=== PATIENT | male | born 1960 | race Hispanic/Latino ===

== ENCOUNTER 2018-05-14 06:20 | Observation (INO) | payer MEDICARE ==
[2018-05-11 13:09] LABS: BASOPHILS % (AUTO) 1.4 % (0.0-5.0); EOSINOPHILS % (AUTO) 7.8 % (0.0-8.0); HEMATOCRIT 32.1 % (42-54); LYMPHOCYTES % (AUTO) 27.2 % (21.0-51.0); MEAN CORPUSCULAR HEMOGLOBIN 24.2 pg (27.0-33.0); MEAN CORPUSCULAR HGB CONC 31.9 g/dL (32.0-36.0); MEAN CORPUSCULAR VOLUME 75.9 fL (79-99); MONOCYTES % (AUTO) 10.7 % (3.0-13.0); NEUTROPHILS % (AUTO) 52.9 % (40.0-77.0); PLATELET COUNT (AUTO) 285 K/uL (130-400); RED BLOOD CELL COUNT(AUTO) 4.23 MIL/uL (4.50-6.20); RED CELL DISTRIBUTION WIDTH 21.7 % (11.0-15.5); WHITE BLOOD COUNT (AUTO) 6.7 K/uL (4.8-10.8)
[2018-05-11 13:20] VITALS: BP 158/84
[2018-05-11 13:26] LABS: CREATININE 1.3 mg/dL (0.5-1.5); POTASSIUM 3.7 mmol/L (3.5-5.1)
--- NOTE | 2018-05-11 15:47 | NUR ---
ABNORMAL LABS REPORTED ABNORMAL LABS TO DR. KOVACS. RBC, HGM, HCT. NO NEW ORDERS GIVEN.
[~2018-05-14] VITALS: Ht 172.7 cm; Wt 87.7 kg
[2018-05-14] VITALS (21 sets, daily range): BP systolic 141–169; BP diastolic 75–99
[~2018-05-14 06:20] MED LIST: ABIR250T PO; AMLODIPINE PO; METFORMIN PO; PRAV20TA4 PO; PRED5TAB PO; TAMS0.4C32 PO; VALS160T29 PO
[2018-05-14] MEDS ORDERED: SODIUM CHLORIDE 0.9% 1000ML 1,000 ML IV ONE (06:55)
[2018-05-14] MEDS ORDERED: DEXAMETHASONE SOD PHOSPHATE 10MG/ML 1ML VIAL ONE ×2 (07:02→07:04)
[2018-05-14] MEDS ORDERED: LIDOCAINE PF 2% 5ML ABBOJECT ONE (07:02)
[2018-05-14] MEDS ORDERED: ONDANSETRON HCL 4 MG/2 ML VIAL ONE (07:03)
[2018-05-14] MEDS ORDERED: MIDAZOLAM HCL 1 MG/ML 2ML VIAL ONE (07:03)
[2018-05-14] MEDS ORDERED: NEOSTIGMINE 5MG/5ML SYR IV ONE (07:03)
[2018-05-14] MEDS ORDERED: GLYCOPYRROLATE 1 MG/5 ML SYRINGE ONE (07:03)
[2018-05-14] MEDS ORDERED: PROPOFOL 10 MG/ML 20ML VIAL IV ONE ×2 (07:03→08:07)
[2018-05-14] MEDS ORDERED: FENTANYL CITRATE PF 50 MCG/1 ML 2ML VIAL ONE ×3 (07:04→10:02)
[2018-05-14] MEDS ORDERED: ROCURONIUM BROMIDE 10MG/1ML 5ML VL ONE (07:04)
[2018-05-14] MEDS ORDERED: SUCCINYLCHOLINE CHLORIDE 20 MG/ML 10 ML VIAL ONE (07:05)
[2018-05-14] MEDS: CEFAZOLIN SODIUM 1 GM VIAL ONE ×2 (07:13→08:00)
--- NOTE | 2018-05-14 07:13 | NUR ---
VALUABLES: CLOTHING, GLASSES, CELL PHONE WITH PHONE OVERNIGHT ASSOCIATE AND WALLET GIVEN TO MOTHER.
[2018-05-14] MEDS ORDERED: ROCURONIUM 10MG/1ML SYR 10 MG/ML ML ONE (07:14)
[2018-05-14] MEDS ORDERED: EPHEDRINE SULFATE 50 MG/ML AMPULE ONE (09:32)
[2018-05-14] MEDS ORDERED: MEPERIDINE-PF 25 MG/ML SYG ONE (10:14)
[2018-05-14] MEDS ORDERED: PROMETHAZINE HCL 25 MG/ML 1ML AMPULE IM ONE (10:20)
[2018-05-14] MEDS: LACTATED RINGERS 1000ML 1,000 ML IV SCH ×2 (11:15→20:56)
[2018-05-14] MEDS ORDERED: KETOROLAC TROMETHAMINE 15MG/ML IV PRN (11:15)
[2018-05-14] MEDS ORDERED: PROMETHAZINE HCL 25 MG/ML 1ML AMPULE IM PRN (11:30)
[2018-05-14] MEDS: HYDROCODONE/ACETAMINOPHEN 5/325 MG TAB PO PRN (15:42)
[2018-05-14] MEDS ORDERED: HYDROCODONE/ACETAMINOPHEN 5/325 MG TAB PO PRN (15:45)
[2018-05-14] MEDS: CEFTRIAXONE SODIUM 1 GM IVP SCH (20:51)
[2018-05-14] MEDS: BISACODYL 5 MG TABLET.DR PO SCH (21:00)
--- NOTE | 2018-05-14 22:12 | NUR ---
ROUNDING. MD MITCHELL ROUNDING IN PT ROOM. MD ASSESSED PT AND PT CHART. UPDATED PT AND FAMILY AT BEDSIDE ON POC. PT AND FAMILY WERE GIVEN THE OPPORTUNITY TO ASK QUESTIONS. NEW ORDERS ENTERED BY . Addendum: 05/15/18 at 0257 by FRANKLIN BLEDSOE RN Amended: Links added.
[2018-05-15 00:32] VITALS: BP 139/77
[2018-05-15 04:00] VITALS: BP 146/77
[2018-05-15 04:42] LABS: HEMATOCRIT 30.2 % (42-54); MEAN CORPUSCULAR HEMOGLOBIN 24.6 pg (27.0-33.0); MEAN CORPUSCULAR HGB CONC 32.5 g/dL (32.0-36.0); MEAN CORPUSCULAR VOLUME 75.8 fL (79-99); PLATELET COUNT (AUTO) 278 K/uL (130-400); RED BLOOD CELL COUNT(AUTO) 3.99 MIL/uL (4.50-6.20); RED CELL DISTRIBUTION WIDTH 21.8 % (11.0-15.5); WHITE BLOOD COUNT (AUTO) 8.9 K/uL (4.8-10.8)
[2018-05-15 05:06] LABS: CREATININE 1.3 mg/dL (0.5-1.5); POTASSIUM 4.1 mmol/L (3.5-5.1)
[2018-05-15] MEDS: LACTATED RINGERS 1000ML 1,000 ML IV SCH (06:19)
[2018-05-15] MEDS: INSULIN HUMULIN R 100 UNIT/ML 3ML SQ SCH ×2 (06:19→11:30)
[2018-05-15] MEDS: HYDROCODONE/ACETAMINOPHEN 5/325 MG TAB PO PRN (06:34)
[2018-05-15 07:30] VITALS: BP 167/99
[2018-05-15] MEDS ORDERED: METFORMIN HCL 500 MG TABLET PO SCH (08:00)
[2018-05-15] MEDS ORDERED: CEFTRIAXONE SODIUM 1 GM ONE (08:33)
[2018-05-15] MEDS: CEFTRIAXONE SODIUM 1 GM IVP SCH (08:35)
[2018-05-15] MEDS: BISACODYL 5 MG TABLET.DR PO SCH (08:42)
[2018-05-15] MEDS ORDERED: TAMSULOSIN HCL 0.4 MG CAP.ER.24H PO SCH (09:00)
[2018-05-15] MEDS ORDERED: LOSARTAN 100 MG TABLET PO SCH (09:00)
[2018-05-15] MEDS ORDERED: AMLODIPINE BESYLATE 5 MG TAB PO SCH (09:00)
[2018-05-15] MEDS ORDERED: PREDNISONE 5 MG TABLET PO SCH (09:00)
[2018-05-15] MEDS ORDERED: ZYTIGA 1000 MG PO SCH (09:00)
[2018-05-15 11:00] VITALS: BP 145/82
--- NOTE | 2018-05-15 11:52 | NUR ---
VALLES CATHETER DISCONTINUED, PER DOCTOR'S ORDERS. DEFLATED BALLOON COMPLETELY, 20 ML. PATIENT TOLERATED WELL. TIP OF THE CATHETER INTACT. NO QUESTIONS OR CONCERNS VOICED AT THIS TIME. Addendum: 05/15/18 at 1154 by HUAN MCCORMACK RN RN Amended: Links added.
--- NOTE | 2018-05-15 13:00 | NUR ---
PT VOIDED POST D/C VALLES CATHETER 200 CC OF PINK URINE NO GROSS HEMATURIA NOTED PT DENIES ANY BLADDER PAIN
--- NOTE | 2018-05-15 15:02 | NUR ---
DCP CM met with pt discussed dc plans. Pt is independent prior to admission, lives at home with mother. Denies any equipments/services. Pt feels safe to go back home, still drives. DC plan to home once stable. CM to cont to follow up. Addendum: 05/15/18 at 1503 by JULIA FERGUSON LVN CM Amended: Links added.
--- NOTE | 2018-05-15 15:18 | NUR ---
POST VOID BLADDER SCAN PERFORMED PER BLADDER SCANNER 0 CC OF VOLUME IN THE BLADDER PT VOIDED 100 CC OF URINE, PINK COLOR NO SIGNS OF GROSS HEMATURIA NOTED WILL INFORM HOSPITALIST PT DENIES SOB OR CHEST PAIN
--- NOTE | 2018-05-15 15:50 | NUR ---
PT DENIES SOB OR CHEST PAIN PT GIVEN D/C EDUCATION USING TEACH BACK METHOD SATISFACTORILY IV REMOVED, CATHETER INTACT
[2018-05-15] MEDS ORDERED: ATORVASTATIN CALCIUM 10 MG TABLET PO SCH (21:00)
== END 2018-05-15 16:00 | disposition home or self-care (01) ==
LOC: DAH 06:20 → 4CH 06:21
PROVIDERS: ADMIT Surgery; ATTEND Surgery
DX: C61 Malignant neoplasm of prostate (principal); E11.9 Type 2 diabetes mellitus without complications; N40.0 Benign prostatic hyperplasia without lower urinary tract symptoms; E78.2 Mixed hyperlipidemia; I10 Essential (primary) hypertension; R31.0 Gross hematuria; Z79.899 Other long term (current) drug therapy
CPT/HCPCS: 36415 ×2; 52001; 80048 ×2; 82948 ×6; 85025; 85027; 87088; 88108 ×2; 88305; 88341; 88342; 96372; 96374; 96375; 96376; A4218 ×2; A4346; A4354; A4358; A4510; A4600; A5113; G0378 ×34; J0330; J0690; J0696 ×2; J1100 ×2; J1885; J2001; J2175; J2250; J2405; J2550; J2704 ×2; J2710; J3010 ×3; J3490 ×3; J7030 ×2; J7120 ×3; J7512